=== PATIENT | female | born 1970 | race Hispanic/Latino ===

== ENCOUNTER 2016-04-05 06:49 | Emergency (ER) | payer SELFPAY ==
[~2016-04-05] VITALS: Ht 157.5 cm; Wt 72.7 kg
[~2016-04-05 06:49] MED LIST: vitamin d3
[2016-04-05 06:54] VITALS: BP 135/83; PULSE 85; RESP 16; O2SAT 100
--- NOTE | 2016-04-05 06:57 | ED.REPORT ---
HPI-Back Pain 40 and Over Date of Service Apr 05, 2016 ED Provider: The patient is a 45 year old female with history of asthma and diabetes mellitus , who presents to the emergency department complaining of back pain that began 3 days ago. The pain is located to her right lumbar region. She denies any known injury or trauma. She took Ibuprofen last night with some improvement. She has not had similar symptoms in the past. She denies radiating pain, problem walking, numbness, weakness, bladder/bowel incontinence, dysuria, fever , abdominal pain, diarrhea or vomiting. Nursing Notes Stated Complaint: BACK PAIN Chief Complaint: Back Pain or Injury Nursing Notes Reviewed: Yes Allergies: Coded Allergies: No Known Allergies (Unverified , 04/17/15) Scheduled ([vitamin d3]) Unknown Dose DAILY Scheduled PRN Cyclobenzaprine (Cyclobenzaprine) 10 Mg Tablet 10 MG PO TID PRN PRN Spasm Naproxen (Naproxen) 500 Mg Tab 500 MG PO BID PRN PRN For Pain General Time Seen by MD: 06:57 Chief Complaint Back pain Hx Obtained From: Patient Arrived By: Walk-in Sudden in Onset?: Yes Onset Occurred: 3 days ago Symptom Duration: Since onset Caused by: Spontaneous/no mechanism Location: : Perispinal lumbar (right side) Quality: Painful Radiation: : Does not radiate Severity: Current: Moderate Severity: Maximum: Severe Recent Healthcare: No recent hospitalization Similar Sx Previous: No Past Medical History Past Medical History Reports: Asthma, Diabetes mellitus Past Surgical History Cholecystectomy Family History Noncontributory Smoking History Never Smoker Social History Alcohol Use: Denies alcohol use Drug Use: Denies drug use Other Social History: Good social support, , Local resident Occupation lives with , no work or school Ambulatory Status Independent Review of Systems Constitutional: Denies: Fever GI: Denies: Abdominal pain, Diarrhea, Vomiting Female: Denies: Dysuria, Incontinence Musculoskeletal: Reports: Back pain, Denies: Extremity pain Neurologic: Denies: Bladder dysfunction, Bowel dysfunction, Focal weakness, Numbness, Problem walking Complete sys rev & neg: except as marked. Physical Exam Initial Vital Signs Vital Signs (First) Date Time Temp Pulse Resp B/P Pulse Ox O2 Delivery O2 Flow Rate FiO2 04/05/16 06:54 36.6 85 16 135/83 100 Room Air Initial VS: Reviewed Head / Eyes: Atraumatic, Normocephalic, PERRL ENT: Mucous membranes moist, Conjunctiva normal, No scleral icterus Neck: Supple, Non-tender, Full range of motion Lymphatic: No lymphadenopathy Extremities: Vascular intact, Neuro intact, No swelling, No tenderness Skin: Warm, Dry, No cyanosis Psychiatric: Mood/affect normal, Behavior normal, Normal thought content General/Constitutional: Awake, Alert Respiratory / Chest: Atraumatic, Breath sounds NL, Breath sounds = bilat, No respiratory distress, No rales, No rhonchi, No wheezing Cardiovascular: Heart rate NL, Regular rhythm, Heart sounds NL, No murmurs, No rubs, Peripheral circulation NL Abdomen: Atraumatic, Soft, Non-tender, No guarding, No rebound, No distention, No palpable mass, No pulsatile mass Back: No midline vertebral tend, Straight leg raise neg Right paraspinal lumbar tenderness with palpation. Normal motor and sensory from L1-S1. Neurologic: Oriented X3, Speech NL, No motor deficits, No sensory deficits, CN II - XII intact, Cerebellar NL, Memory NL, Gait NL Re-Eval/Medical Decision Med Decision/Clinical Course Chronic back pain with acute flare without high-risk features. Patient is medicated. Return precautions given. Source of Hx: Old records Re-Evaluation/Progress : Time of Eval: 07:30 Re-Evaluation/Progress Note: Rechecked the patient. She is feeling better. Discussed plan for discharge. All questions were addressed. Counseled Regarding: Diagnosis, Need for follow-up, When/why to return to ED Discharge & Departure Impression: Primary Impression: Low back pain Chronicity: acute Back pain laterality: right Sciatica presence: without sciatica Qualified Code: M54.5 - Low back pain Disposition: Home Discharge Condition All VS Reviewed: Yes Condition: Stable Patient Instructions: Low Back Strain (ED) Additional Instructions: Thank you for entrusting us with your care today. Your exam findings are reassuring. I do not think you need any x-rays at this time. Take Naproxen and cyclobenzaprine as prescribed for pain. You can also try applying ice to the painful areas if this helps. Return to the emergency department if you develop increased pain, numbness, weakness, bladder/bowel incontinence, fever, vomiting , or any other new or concerning symptoms. Ross por confiarnos pena cuidado hoy. Los resultados del examen son tranquilizadores. No creo que necesite ninguna radiografa en rukhsana momento. Ramos Naproxen y cyclobenzaprine segn lo prescrito para el dolor. Tambin puede intentar aplicar hielo a las reas dolorosas si esto ayuda. Vuelva al departamento de urgencias si desarrolla un mayor dolor, entumecimiento, debilidad, incontinencia vesical / intestinal, fiebre, vmitos o cualquier otro sntoma nuevo o relacionado. Referrals: [facility] Scribe Attestation Portions of this note were transcribed by Nury Bose. I, Dr. Schwartz personally performed the history, physical exam and medical decision-making; I reviewed and confirmed the accuracy of the information in the transcribed note. Signed by: Magaly Heart, 04/04/2016 at 0735. Ron Schwartz DO Apr 05, 2016 06:57 Nury Bose Apr 05, 2016 07:10
[2016-04-05] MEDS ORDERED: NPR500T PO (07:20)
[2016-04-05] MEDS ORDERED: CYCL10TA9 PO (07:20)
[2016-04-05 07:43] VITALS: BP 135/83; PULSE 85; RESP 16; O2SAT 100
== END 2016-04-05 07:44 | disposition home or self-care (01) ==
LOC: SED 06:49
DX: M54.5 Low back pain (principal); E11.9 Type 2 diabetes mellitus without complications; J45.909 Unspecified asthma, uncomplicated; Z90.49 Acquired absence of other specified parts of digestive tract